=== PATIENT | male | born 1960 | race Caucasian/White ===

== ENCOUNTER → 2017-06-16 | Outpatient (CLI) | payer BC ==
--- NOTE | 2017-06-16 08:24 | US ---
EXAMINATION TYPE: US scrotum with doppler. Grayscale and color Doppler Duplex imaging performed of t bulmaro scrotum. DATE OF EXAM: 06/16/2017 COMPARISON: 03/25/2009 CLINICAL HISTORY: Mass right testicle N50.9. EXAM MEASUREMENTS: TESTICLES: Right Testicle: 5.2 x 2.1 x 3.7, cysts noted within, largest measuring 0.6cm, heterogeneous Left Testicle: 4.1 x 2.7 x 2.6 cm EPIDIDYMIS HEAD: Right Epididymis: cyst measuring 4.1 x 2.3 x 3.6cm , lack of peripheral tissue Left Epididymis: 1.0 cm Doppler performed to assess for testicular vascularity; good bilateral color flow and waveforms are s een. There is no evidence of testicular torsion. Presence of hydroceles: right measuring 1.2 x 1.1 Left possible hematocele measuring 3.4 x 3.6 x 3.8 cm Presence of varicoceles: no Previous measurement of right epididymal cyst 2.9cm. IMPRESSION: 1. Prominence of the right-sided rete testes with intratesticular cysts noted. 2. Large right sided epididymal cysts demonstrates interval enlargement with previous measurement of 2.9 cm.
== END | disposition home or self-care (01) ==
LOC: RADUSWWP 07:12
PROVIDERS: ATTEND Physical Medicine & Rehabilitation
DX: N44.2 Benign cyst of testis (principal); N50.3 Cyst of epididymis
CPT/HCPCS: 76870; 93975

== ENCOUNTER → 2021-09-29 | Outpatient (CLI) | payer BC ==
--- NOTE | 2021-09-30 04:24 | MR ---
EXAMINATION TYPE: MR knee RT wo con DATE OF EXAM: 09/29/2021 COMPARISON: None HISTORY: PAIN IN RIGHT KNEE The anterior and posterior cruciate ligaments are intact. There is a mild knee joint effusion. The pa tella is intact. There is a small vertical and horizontal tear through the posterior horn of the medi al meniscus. This is seen near the free margin. There is large area of abnormal increased signal in the medial femoral condyle on the proton density images consistent with a large bone bruise. No fracture line seen. There is soft tissue edema along t he medial aspect of the knee joint. The collateral ligaments appear intact however. There is small ar ea of bone bruise in the medial aspect medial tibial condyle. IMPRESSION: Knee joint effusion. Small horizontal and vertical tear of the posterior horn medial meniscus. Extens andrew bone bruise in the medial femoral condyle. Smaller bone bruise in the medial tibial condyle. No f racture seen. Soft tissue edema. Extensive edema around the medial collateral ligament but no definit e tear.
== END | disposition home or self-care (01) ==
LOC: RADMRIMAIN 15:25
PROVIDERS: ATTEND Family Medicine
DX: M23.321 Other meniscus derangements, posterior horn of medial meniscus, right knee (principal)